=== PATIENT | male | born 1985 | race Caucasian/White ===

== ENCOUNTER 2018-07-02 00:38 | Emergency (ER) | payer SELFPAY ==
--- NOTE | 2018-07-02 01:00 | PDOC ---
History of Present Illness - General Stated Complaint: R FOOT INJURY Time Seen by Provider: 07/02/18 01:00 - History of Present Illness Initial Comments: 32 year old male with PMH of left foot fracture after a soccer injury presenting with right foot pain, swelling and deformity after a soccer related injury. States that he went to kick the soccer ball but caught his toes on the floor and instead struck the floor causing his toes and foot to bend inwards. Patient states he could not ambulate after the injury and his shoe began to tighten around his foot. His friend supported one side of him and helped him come to the hospital. Denies any skin breakage or bleeding. 07/02/18 01:15 Past History - Past Medical History Allergies/Adverse Reactions: Allergies Allergy/AdvReac Type Severity Reaction Status Date / Time No Known Allergies Allergy Verified 07/02/18 01:16 Home Medications: Ambulatory Orders NK [No Known Home Medication] 07/02/18 Review of Systems - Review of Systems Constitutional: No: Chills, Diaphoresis, Fever HEENTM: No: Eye Pain, Blurred Vision, Tearing Respiratory: No: Cough, Orthopnea, Shortness of Breath Cardiac (ROS): No: Chest Pain, Edema, Irregular Heart Rate ABD/GI: No: Constipated, Diarrhea, Nausea, Vomiting : No: Burning, Dysuria, Discharge Musculoskeletal: Yes: Joint Pain, Joint Swelling Integumentary: Yes: Lumps. No: Bruising, Change in Color, Erythema, Flushing Neurological: No: Numbness, Paresthesia, Tremors, Weakness Hematologic/Lymphatic: No: Anemia, Blood Clots, Easy Bleeding *Physical Exam - Physical Exam General Appearance: Yes: Nourished, Appropriately Dressed. No: Apparent Distress HEENT: positive: EOMI, MAGNOLIA, Normal ENT Inspection, Normal Voice Neck: positive: Trachea midline, Normal Thyroid, Supple. negative: Tender, Rigid Respiratory/Chest: positive: Lungs Clear, Normal Breath Sounds. negative: Chest Tender, Respiratory Distress, Accessory Muscle Use Cardiovascular: positive: Regular Rhythm, Regular Rate Gastrointestinal/Abdominal: positive: Normal Bowel Sounds, Flat, Soft. negative : Tender Lymphatic: negative: Adenopathy, Tenderness Musculoskeletal: positive: Decreased Range of Motion. negative: Normal Inspection (tenderness and swelling over the medial dorsal mid foot with pain to palpation. No pain around ankle joint, no selling of ankle, and no limited ROM of ankle.) Extremity: positive: Normal Capillary Refill, Tender. negative: Normal Inspection, Normal Range of Motion Integumentary: positive: Normal Color, Dry, Warm Neurologic: positive: production manager II-XII NML intact, Fully Oriented, Alert, Normal Mood/ Affect, Normal Response, Motor Strength 5/5, Other (neurovascularly intact at site of trauma and distal to trauma.) Medical Decision Making - Medical Decision Making 32 year old male with right foot injury during soccer accident. Xrays concerning for multiple cuneiform fractures and/ or lisfranc injury. Will get CT scan and consult ortho subsequently. Patient signed out to Dr. Carreno in stable condition pending imaging and follow up. 07/02/18 01:40 *DC/Admit/Observation/Transfer Diagnosis at time of Disposition: Lisfranc fracture - Referrals - Patient Instructions - Post Discharge Activity
[2018-07-02 01:17] VITALS: BP 121/62; PULSE 68; TEMP 97.9; BMI 24.3
--- NOTE | 2018-07-02 01:53 | PDOC ---
Attending Attestation - Resident Resident Name: Tino Evans - ED Attending Attestation I have performed the following: I have examined & evaluated the patient, The case was reviewed & discussed with the resident, I agree w/resident's findings & plan, Exceptions are as noted - HPI HPI: 07/02/18 01:52 this 32 yo male was playing soccer and went to kick the ball and instead slammed his foot into itzel floor. Swelling and pain on dorsal surface of his midfoot - Physicial Exam PE: 07/02/18 01:53 wnwd 32 yo male with left foot pain -there is significant dorsal foot swelling ,no lateral or medial malleoulus pain , good dp and pt pulses,cap refiull < 2 seconds, no fifth metatarsal tenderness, no pharyngeal pain, ++ pain in cuboids,no appreciable heel pain knee has no tenderness,pt able to flex and extend leg no tib/fib tenderness neuro axox3,cannot bear weight on left foot - Medical Decision Making 07/02/18 01:57 imaging to r/o fracture , dislocation <Cintia Tsang - Last Filed: 07/02/18 01:57> - Medical Decision Making 07/02/18 02:47 Patient Name: JUAN CARLOS POON THIS IS A PRELIMINARY REPORT FROM [facility] DATE OF SERVICE: 2018-07-02 01:59:20 IMAGES: [id number] EXAM: LOWER EXTREMITY CT W/O CONTR HISTORY: Fracture COMPARISON: None. FINDINGS: There is a fracture in the anterior aspect of the medial cuneiform with intra-articular extension. No other fractures are identified. There is overlying soft tissue swelling. Lisfranc joint is intact. IMPRESSION: Fracture of the medial cuneiform. 07/02/18 02:50 Pt will be placed in a posterior splint and then he will follow with Jay/Estefany /Sergio for short leg casting x 6 weeks. <Liz La - Last Filed: 07/02/18 02:50>
--- NOTE | 2018-07-02 01:54 | PDOC ---
*Physical Exam - Vital Signs Last Vital Signs Temp Pulse Resp BP Pulse Ox 97.9 F 68 20 121/62 99 07/02/18 01:16 07/02/18 01:16 07/02/18 01:16 07/02/18 01:16 07/02/18 01:16 - Physical Exam Comments: 07/02/18 01:53 GENERAL: Awake, alert, and fully oriented, in no acute distress HEAD: No signs of trauma, normocephalic, atraumatic EYES: PERRLA, EOMI, sclera anicteric, conjunctiva clear ENT: Hearing grossly normal, nares patent, oropharynx clear without exudates. Moist mucosa NECK: Normal ROM, supple, no lymphadenopathy, JVD, or masses LUNGS: No distress, speaks full sentences, clear to auscultation bilaterally HEART: Regular rate and rhythm, normal S1 and S2, no murmurs, rubs or gallops, peripheral pulses normal and equal bilaterally. EXTREMITIES : + Bony ttp, at R mid dorsal midfoot, with swelling. Normal inspection, Normal range of motion, no edema. No clubbing or cyanosis. SKIN: Warm, Dry, normal turgor, no rashes or lesions noted Medical Decision Making - Medical Decision Making 07/02/18 01:49 32 yo M with no significant pmh who p/w right foot pain s/p injury. Sign out from Dr. Evans. Right foot pain with swelling, and 1st-2nd metatarsal/forefoot following blunt injury of toe against floor. VSS, AF, A&Ox3, RLE neurovasculalry intact. Possible lis franc or cunefiorm injury on radiographic eval. Pending CT Left foot to further characterize fracture, and potential injury. Ortho consult, pain control. Patient stable ED Course: R FOOT RAD: Questionable fracture lateral midfoot. CT R FOOT 07/02/18 02:27 07/02/18 02:48 CT FOOT: Medial cunifrom fracture Pt. placed in posterior splint Advised to f/u with ortho Stable for d/c with return precautions *DC/Admit/Observation/Transfer Diagnosis at time of Disposition: Fx cuneiform, foot-closed - Discharge Dispostion Condition at time of disposition: Stable - Referrals Referrals: Christiano Allison MD [Staff Physician] - - Patient Instructions Printed Discharge Instructions: DI for Foot Fracture Additional Instructions: Please return to the emergency department with any new or worsening symptoms or concerns. Please follow up with your primary care physician within 72 hours. Please follow up with orthopedic surgery within 1-2 days. Ibruprofen as needed for pain 600 mg every 4-6 hourse, ICE, elevation, rest. - Post Discharge Activity - Attestations Physician Attestion: 07/02/18 01:55 I attest to the information provided in this note.
== END 2018-07-02 03:28 | disposition home or self-care (01) ==
LOC: JER 00:38
PROC: 2W3QX1Z Immobilization of Right Lower Leg using Splint (ICD-10-PCS; principal; 2018-07-02)
DX: S92.901A Unspecified fracture of right foot, initial encounter for closed fracture (principal); W21.89XA Striking against or struck by other sports equipment, initial encounter; Y93.66 Activity, soccer; Y92.322 Soccer field as the place of occurrence of the external cause
CPT/HCPCS: 73630-TC-RT-FY; 73700-TC-RT; 99283-25